=== PATIENT | male | born 1945 | race Caucasian/White ===

== ENCOUNTER → 2017-12-07 | Day surgery (SDC) | payer MEDICARE ==
[2017-12-04 12:33] LABS: BASOPHILS % 0.2 % (0.0-1.0); EOSINOPHILS # (AUTO) 0.1 (0.0-0.4); EOSINOPHILS % 1.3 % (0.0-6.0); HEMATOCRIT 44.2 % (38.2-49.6); HEMOGLOBIN 14.7 g/dL (14.0-18.0); LYMPHOCYTES # (AUTO) 3.5 (1.0-3.2); LYMPHOCYTES % 31.2 % (18.0-39.1); MEAN CORPUSCULAR HEMOGLOBIN 29.8 pg (28-32); MEAN CORPUSCULAR HGB CONC 33.3 g/dL (31-35); MEAN CORPUSCULAR VOLUME 89.5 fL (81-99); MONOCYTES # (AUTO) 1.1 (0.2-0.8); MONOCYTES % 10.2 % (4.4-11.3); NEUTROPHILS # (AUTO) 6.2 (2.1-6.9); NEUTROPHILS % 55.7 % (38.7-80.0); PLATELET COUNT 227 x10e3/uL (140-360); RED BLOOD COUNT 4.94 x10e6/uL (4.3-5.7); RED CELL DISTRIBUTION WIDTH 12.9 % (11.7-14.4)
[2017-12-04 12:52] LABS: ANION GAP 12.5 mmol/L (8-16); BLOOD UREA NITROGEN 14 mg/dL (7-26); BUN/CREATININE RATIO 13 (6-25); CALCIUM 9.8 mg/dL (8.4-10.2); CARBON DIOXIDE 27 mmol/L (22-29); CHLORIDE 102 mmol/L (98-107); CREATININE, SERUM 1.12 mg/dL (0.72-1.25); EST GLOMERULAR FILTRATION RATE > 60 ML/MIN (60-); GLUCOSE 87 mg/dL (74-118); POTASSIUM 4.5 mmol/L (3.5-5.1); SODIUM 137 mmol/L (136-145)
--- NOTE | 2017-12-04 13:05 | Diagnostic Imaging Report ---
CHEST RADIOGRAPH- 2 VIEWS, Comparison: None Indication: Pre-op DISCUSSION: Lines: None. Lungs/pleural spaces: The lungs are moderately inflated and clear. Calcified right upper lobe granuloma. No evidence of pneumonia or pulmonary edema. No evidence of pleural effusion or pneumothorax. Heart/mediastinum: Normal heart size. Tortuous descending thoracic aorta. Bones: Multilevel degenerative changes and mild approximately 50% anterior wedging deformity of a lower thoracic vertebral body and minimal anterior wedging of a midthoracic vertebral body, unchanged from prior. IMPRESSION: No acute radiographic abnormality. Signed by: Dr. Julienne Rosenthal MD on 12/04/2017 1:01 PM
[~2017-12-07] MED LIST: ALLERGY RELIEF PO; ALPRAZOLAM0.5 M1 PO; AZITHROMYCIN250 MG PO; BUPIVACAINE HCL 0.5% 10ML MPF VIAL INJ ONE; BUPROPION HCL100 MG PO; CEFAZOLIN SOD 2 GM/D5W 50ML 50 ML IV ONE; CYMBALTA30 MG PO; DEXAMETHASONE SOD PHOS INJ 4 MG/ML VIAL ONE; FENTANYL CITRATE/PF 100MCG/2 ML INJ ONE; HYDROCODONE-CH473 ML PO; KETOROLAC TROMETHAMINE 30 MG/ML VIAL ONE; LIDOCAINE HCL 2% LOCAL INJ 5 ML SDV VIAL INJ ONE; MIDAZOLAM HCL 2 MG/2 ML VIAL ONE; MULTIVITAMINS1 EAC7 PO; MUPIROCIN 2% OINT 22 GM TUBE ONE; NUVIGIL150 MG PO; OMEPRAZOLE40 MG PO; ONDANSETRON HCL INJ 2 MG/ML VIAL ONE; OXYCONTIN10 MG; PERCOCET 10-321 EACH PO; PRAVASTATIN SOD40 MG PO; PROPOFOL IV EMULSION 10 MG/ML 20 ML VIAL ONE; PROPRANOLOL HCL60 M1 PO; RANITIDINE HCL150 MG PO; ROBAXIN-750750 MG PO; SEVOFLURANE INHAL SOLN 250 ML PEN BTL ONE; TRAZODONE HCL50 MG PO; TYLENOL EXTRA500 MG PO; ZANTAC150 MG PO; ZOFRAN ODT4 MG PO
--- OUTSIDE RECORDS SUMMARY | 2017-12-07 06:19 | XMS REPORT ---
Author Author Shane Davis Organization [employer] Address Unknown Phone Unavailable Care Team Providers Care Elderly Caregiver Name Role Phone Shane Davis CP Unavailable Allergies, Adverse Reactions, Alerts Substance Reaction Event Type Morphine Sulfate nausea Drug Allergy Demerol rapid heart beat Drug Allergy Problems Problem Type Condition Code Onset Dates Condition Status Problem GERD K21.9 Active Assessment Edema of larynx J38.4 Active Problem Dysphagia R13.19 Active Assessment GERD K21.9 Active Assessment Laryngeal spasm J38.5 Active Assessment Cough R05 Active Assessment Dysphagia R13.19 Active Medications Medication Code System Code Instructions Start Date End Date Status Dosage Propranolol HCl [facility] [address]-56 Active not defined Zantac [facility] [address]-54 Active not defined Robaxin [facility] [address]-12 Active not defined Tylenol [facility] [address]-64 Active not defined Wellbutrin NDC 0 Active not defined Multivitamin [facility] 76286-87883 Active not defined Pravastatin Sodium [facility] [address]-13 Active not defined Duloxetine HCl [facility] [address]-62 Active not defined Omeprazole NDC 0 Active not defined Melatonin [facility] [address]80-[address]40 Active not defined Results No Known Results Summary Purpose [employer] Submission
--- OUTSIDE RECORDS SUMMARY | 2017-12-07 06:19 | XMS REPORT ---
Author Author Shane Davis Organization [employer] Address Unknown Phone Unavailable Care Team Providers Care Privacy Director Name Role Phone Shane Davis CP Unavailable Allergies, Adverse Reactions, Alerts Substance Reaction Event Type Morphine Sulfate nausea Drug Allergy Demerol rapid heart beat Drug Allergy Problems Problem Type Condition Code Onset Dates Condition Status Problem GERD K21.9 Active Assessment Cough R05 Active Problem Dysphagia R13.19 Active Assessment GERD K21.9 Active Assessment Dysphagia R13.19 Active Assessment Edema of larynx J38.4 Active Medications Medication Code System Code Instructions Start Date End Date Status Dosage Pravastatin Sodium [facility] [address]-66 Active not defined Multivitamin [facility] [address] Active not defined Robaxin [facility] [address]-26 Active not defined Omeprazole NDC 0 Active not defined Tylenol [facility] [address]-80 Active not defined Zantac [facility] [address]-71 Active not defined Wellbutrin NDC 0 Active not defined Propranolol HCl [facility] [address]-21 Active not defined Melatonin [facility] [address]763 Active not defined Tussionex Pennkinetic ER [facility] 55241037958 10-8 MG/5ML Orally every 12 hrs May 16, 2017 May 26, 2017 Active 5 ml as needed Oxycodone HCl [facility] [id number] 5 MG/5ML Orally every 6 hrs May 16, 2017 May 23, 2017 Active 10 ml as needed Duloxetine HCl [facility] [address]-89 Active not defined Diazepam [facility] 91693544815 10 MG Orally Twice a day May 16, 2017 Active 1 tablet as needed Results No Known Results Summary Purpose [employer] Submission
--- OUTSIDE RECORDS SUMMARY | 2017-12-07 06:19 | XMS REPORT ---
Author Author Shane Davis Organization [employer] Address Unknown Phone Unavailable Care Team Providers Care Pest Locator Name Role Phone Shane Davis CP Unavailable Allergies, Adverse Reactions, Alerts Substance Reaction Event Type Morphine Sulfate nausea Drug Allergy Demerol rapid heart beat Drug Allergy Problems Problem Type Condition Code Onset Dates Condition Status Problem GERD K21.9 Active Assessment Nasal airway obstruction J34.89 Active Problem Dysphagia R13.19 Active Assessment Edema of larynx J38.4 Active Assessment GERD K21.9 Active Assessment Cough R05 Active Assessment Dysphagia R13.19 Active Medications Medication Code System Code Instructions Start Date End Date Status Dosage Tylenol [facility] [address]-47 Active not defined Omeprazole NDC 0 Active not defined Pravastatin Sodium [facility] [address]-75 Active not defined Duloxetine HCl [facility] [address]-99 Active not defined Zantac [facility] [address]-12 Active not defined Multivitamin [facility] [address]-36609 Active not defined Propranolol HCl [facility] [address]-77 Active not defined Robaxin [facility] [address]-59 Active not defined Melatonin [facility] [address]56 Active not defined Wellbutrin ND 0 Active not defined Results No Known Results Summary Purpose [employer] Submission
--- OUTSIDE RECORDS SUMMARY | 2017-12-07 06:19 | XMS REPORT ---
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 Problem GERD K21.9 Active Assessment Edema of larynx J38.4 Active Problem Dysphagia R13.19 Active Assessment GERD K21.9 Active Assessment Laryngeal spasm J38.5 Active Assessment Cough R05 Active Assessment Dysphagia R13.19 Active Medications Medication Code System Code Instructions Start Date End Date Status Dosage Tylenol [facility] [address]-96 Active not defined Propranolol HCl [facility] [address]-67 Active not defined Symbicort [facility] 49270497439 160-4.5 MCG/ACT Inhalation Twice a day June 04, 2017 July 04, 2017 Active 2 puffs Multivitamin [facility] 8[address]-17849 Active not defined Omeprazole NDC 0 Active not defined Robaxin [facility] [address]-22 Active not defined Duloxetine HCl [facility] [address]-19 Active not defined Medrol (Jesus) [facility] 41672110741 4 MG Orally June 04, 2017 June 10, 2017 Active as directed Wellbutrin NDC 0 Active not defined Melatonin [facility] [address]78-17512 Active not defined Zantac [facility] [address]-47 Active not defined Pravastatin Sodium [facility] [address]-99 Active not defined Results No Known Results Summary Purpose [employer] Submission
--- OUTSIDE RECORDS SUMMARY | 2017-12-07 06:19 | XMS REPORT | Clinical Summary ---
Author Author [facility] Organization [facility] Address Unknown Phone Unavailable Care Team Providers Care Lighting Technician Name Role Phone Stefanie Wilhelm MD PCP Allergies Active Allergy Reactions Severity Noted Date Comments Meperidine Other (See Comments) High 10/08/2014 Heart beat fast tachycardia tachycardia tachycardia Morphine Nausea And Vomiting High 10/08/2014 Opioids - Morphine Nausea And Vomiting 02/23/2016 Analogues Current Medications Prescription Sig. Disp. Refills Start End Date Status Date DULoxetine (CYMBALTA) 30 Take 30 mg by mouth. Active MG capsule multivitamin capsule Take 1 capsule by mouth. Active omeprazole (PriLOSEC) 40 Take 40 mg by mouth. Active MG capsule omeprazole (PriLOSEC) 20 Take 20 mg by mouth. Active MG capsule pravastatin (PRAVACHOL) Take 40 mg by mouth. Active 40 MG tablet mirabegron (MYRBETRIQ) 25 Myrbetriq 25 mg Active mg tablet extended tablet,extended release release 24 hr acetaminophen-codeine acetaminophen 300 Active (TYLENOL WITH CODEINE #4) mg-codeine 60 mg tablet 300-60 mg per tablet benzonatate (TESSALON) Take 200 mg by mouth. 09/06/19 Active 200 MG capsule 16 predniSONE (DELTASONE) 20 1 tab qd-bid for up to 5 09/14/19 Active mg tablet days 16 acetylcysteine (MUCOMYST) INHALE 1 ML TWICE A DAY Active 200 mg/mL (20 %) solution amoxicillin (AMOXIL) 500 amoxicillin 500 mg Active MG capsule capsule budesonide (PULMICORT) INHALE 1 VIAL TWICE A DAY Active 0.25 mg/2 mL nebulizer solution cephalexin (KEFLEX) 500 cephalexin 500 mg capsule Active MG capsule hydrocortisone Proctosol HC 2.5 % rectal Active (ANUSOL-HC) 2.5 % rectal cream cream keTOROlac (TORadol) 10 mg ketorolac 10 mg tablet Active tablet methylPREDNISolone methylprednisolone 4 mg Active (MEDROL DOSEPAK) 4 mg tablets in a dose pack tablet pregabalin (LYRICA) 50 MG Lyrica 50 mg capsule Active capsule terbinafine HCl (LamiSIL) terbinafine HCl 250 mg Active 250 mg tablet tablet ranitidine (ZANTAC) 150 03/15/19 Active MG tablet 17 cyclobenzaprine Take 10 mg by mouth. Active (FLEXERIL) 10 mg tablet famotidine (PEPCID) 40 MG Take 40 mg by mouth. Active tablet promethazine (PHENERGAN) Take 25 mg by mouth. Active 25 MG tablet omeprazole (PriLOSEC) 40 Take 40 mg by mouth. Active MG capsule acetaminophen (TYLENOL) Take 500 mg by mouth. Active 500 MG tablet ondansetron (ZOFRAN) 4 MG as needed. 01/28/20 Active tablet 16 Active Problems Problem Noted Date Lumbar degenerative disc disease 04/06/2016 Arthritis 04/03/2016 Enlarged prostate 04/03/2016 Lumbar spinal stenosis 03/30/2016 Depression 03/22/2016 Mild cognitive disorder 03/22/2016 Actinic keratosis 10/13/2015 Benign lipomatous neoplasm 10/13/2015 History of basal cell carcinoma 10/13/2015 Hypertension 10/16/2014 Hypokalemia 10/16/2014 Leukocytosis 10/16/2014 Disorder of orbit 10/16/2014 Slurred speech 10/16/2014 Temporary cerebral vascular dysfunction 10/16/2014 Fever 10/15/2014 Shortness of breath 10/15/2014 Complete tear of left rotator cuff 10/13/2014 Family History Medical History Relation Name Comments Arthritis Father Cancer Father Arthritis Mother Cancer Paternal Grandfather Relation Name Status Comments Father Mother Paternal Grandfather Social History Tobacco Use Types Packs/Day Years Used Date Never Smoker Alcohol Use Drinks/Week oz/Week Comments Yes "alcoholic until 1993' Sex Assigned at Date Recorded Not on file Last Filed Vital Signs Not on file Plan of Treatment Health Maintenance Due Date Last Done Comments COLON CANCER SCREENING 1996 SHINGRIX VACCINE (#1) 1996 ZOSTER VACCINE 2006 PNEUMOCOCCAL 09/07/2011 POLYSACCHARIDE VACCINE AGE 65 AND OVER PNEUMOCOCCAL-13 09/07/2011 INFLUENZA VACCINE 09/12/2017 Results Not on fileafter 12/06/2016 Insurance Payer Benefit Subscriber ID Type Phone Address Plan / Group MEDICARE MEDICARE xxxxxxxxxx Medicare [place] PART A [place] B AARP AARP xxxxxxxxx-xx Commercial SUPPLEMENT Home:
--- OUTSIDE RECORDS SUMMARY | 2017-12-07 06:19 | XMS REPORT ---
Author Author Shane Davis Organization [employer] Address Unknown Phone Unavailable Care Team Providers Care Business Services Representative Name Role Phone Shane Davis CP Unavailable Allergies, Adverse Reactions, Alerts Substance Reaction Event Type Morphine Sulfate nausea Drug Allergy Demerol rapid heart beat Drug Allergy Problems Problem Type Condition Code Onset Dates Condition Status Problem GERD K21.9 Active Assessment Cough R05 Active Problem Dysphagia R13.19 Active Assessment Dysphagia R13.19 Active Assessment GERD K21.9 Active Medications Medication Code System Code Instructions Start Date End Date Status Dosage Wellbutrin NDC 0 Active not defined Tylenol [facility] [address]-13 Active not defined Duloxetine HCl [facility] [address]-55 Active not defined Robaxin [facility] [address]-18 Active not defined Pravastatin Sodium [facility] [address]-24 Active not defined Zantac [facility] [address]-24 Active not defined Melatonin [facility] [address]-14557 Active not defined Propranolol HCl [facility] [address]-55 Active not defined Diazepam [facility] 74315874975 10 MG Orally Twice a day May 16, 2017 Active 1 tablet as needed Multivitamin [facility] [address]90[address]-90778 Active not defined Omeprazole ND 0 Active not defined Results No Known Results Summary Purpose [employer]ClinicalWorks Submission
--- OUTSIDE RECORDS SUMMARY | 2017-12-07 06:19 | XMS REPORT ---
Author Author Shane Davis Organization [employer] Address Unknown Phone Unavailable Care Team Providers Care Tear Down Man Name Role Phone Shane Davis CP Unavailable Allergies, Adverse Reactions, Alerts Substance Reaction Event Type Morphine Sulfate nausea Drug Allergy Demerol rapid heart beat Drug Allergy Problems Problem Type Condition Code Onset Dates Condition Status Problem GERD K21.9 Active Assessment Edema of larynx J38.4 Active Problem Dysphagia R13.19 Active Assessment Cough R05 Active Assessment Dysphagia R13.19 Active Medications Medication Code System Code Instructions Start Date End Date Status Dosage Wellbutrin NDC 0 Active not defined Zantac [facility] [address]-99 Active not defined Duloxetine HCl [facility] [address]-41 Active not defined Clonazepam [facility] [address]-54 Active not defined Robaxin [facility] [address]-53 Active not defined Tylenol [facility] [address]-90 Active not defined Melatonin [facility] 17564-[address]37 Active not defined Percocet [facility] [address]-64 Active not defined Pravastatin Sodium [facility] [address]-52 Active not defined Movantik [facility] [address]-47 Active not defined Flexeril NDC 0 Active not defined Propranolol HCl [facility] [address]-66 Active not defined Multivitamin [facility] [address]352 Active not defined Omeprazole NDC 0 Active not defined DHEA [facility] [address]59[address]-93801 Active not defined Results No Known Results Summary Purpose [employer]ClinicalWorks Submission
--- OUTSIDE RECORDS SUMMARY | 2017-12-07 06:19 | XMS REPORT | Summary of Care ---
Author Author [facility] [place] Organization [facility] [place] Address Unknown Phone Unavailable Encounter HQ Donya_shantel(FIN) [id number] Date(s): 06/09/15 - 06/09/15 [facility] [place] [address] [place], [place] [address] [phone] Discharge Disposition: Home Attending Physician: Makenna Treviño NP Vital Signs No data available for this section Problem List Condition Effective Dates Status Health Status Informant Collapsed lung Resolved 10/2014(Confirmed) GERD Resolved (gastroesophageal reflux disease)(Confirmed) Allergies, Adverse Reactions, Alerts Substance Reaction Severity Status NKDA Active Medications No data available for this section Results No data available for this section Immunizations No data available for this section Procedures Procedure Date Related Diagnosis Body Site Abdomen endoscopy 2015 FH: total knee replacement-Right 19 years ago History of repair of rotator cuff 10/27 Social History Social History Type Response Smoking Status Never smoker; Exposure to Tobacco Smoke None; Cigarette Smoking Last 365 Days No; Reg Smoking Cessation Counseling No Assessment and Plan No data available for this section
--- OUTSIDE RECORDS SUMMARY | 2017-12-07 06:19 | XMS REPORT ---
[facility] Address Unknown Phone Unavailable Care Team Providers Care Commercial Credit Specialist Name Role Phone ASIA BARRERA Unavailable Unavailable FAN, Koki SWARTZ Unavailable Unavailable Problems This patient has no known problems. Allergies, Adverse Reactions, Alerts This patient has no known allergies or adverse reactions. Medications This patient has no known medications. Results Test Description Test Time Test Comments Text Results Atomic Results Result Comments CHEST 2 VIEWS 2017-12-04 12:58:00 [facility] [address] [address] Patient Name: CYNDI WALLS MR #: [id number] : 1945 Age/Sex: 72/M Req #: [id number] Adm Physician: Ordered by: ASIA BARRERA DPM Report #: [id number] Location: OR Room/Bed: Procedure: [id number] DX/CHEST 2 VIEWS Exam Date: 12/04/17 Exam Time: 1205 REPORT STATUS: Signed CHEST RADIOGRAPH- 2 VIEWS, Comparison: None Indica tion: Pre-op DISCUSSION: Lines: None. Lungs/pleural spaces: The lungs are moderately inflated and clear. Calcified right upper lobe granuloma. No evidence of pneumonia or pulmonary edema. No evidence of pleural effusion or pneumothorax. Heart/mediastinum: Normal heart size. Tortuous descending thoracic aorta. Bones: Multilevel degenerative changes and mild approximately 50% anterior wedging deformity of a lower thoracic vertebral body and minimal anterior wedging of a midthoracic vertebral body, unchanged from prior. IMPRESSION: No acute radiographic abnormality. Signed by: Dr. Merna Pacheco MD on 12/04/2017 1:01 PM Dictated By: MERNA PACHECO MD 00 Transcribed By: PARUL on 12/04/17 130 COPY TO: ASIA BARRERA DPM FL, ESOPH, SWALLOW FUNCTION, WITH CINE OR VIDEO 2017-07-19 16:13:00 Reason for Exam:->CoughReason for Exam:->DysphagiaReason for Exam:->GERD FINAL REPORT Modified barium swallow exam with speech pathology service CLINICAL HISTORY: CoughDysphagiaGERD IMPRESSION: Please see the speech pathology service report for details. Barium contrast of multiple consistencies is given to the patient to swallow. Fluoroscopic observation is performed during swallowing. No aspiration identified. Barium esophagogram Clinical History: CoughDysphagiaGERD Discussion: Effervescent crystals, thick barium, and thin barium are given to the patient to drink, without difficulties. The esophageal mucosa, caliber, and gastroesophageal junction are normal. There is mild presbyesophagus. Moderate gastroesophageal reflux is noted. Fluoro time: 4.4 minutes Number of images obtained: 25 Impression: Moderate gastroesophageal reflux. Mild presbyesophagus. Signed: Akosua Dc Verified Date/Time: 07/19/2017 16:13:25 Reading Location: [address] Ortho Consult Reading Room T 2 VIEWS [place] [address] Patient Name: CYNDI WALLS MR #: [id number] : 1945 Age/Sex: 71/M Req #: [id number] Adm Physician: Ordered by: MAXIME CHAVIRA MD Report #: [id number] Location: ER Room/Bed: Procedure: [id number] DX/CHEST 2 VIEWS Exam Date: 12/27/16 Exam Time: 0015 REPORT STATUS: Signed CHEST 2 VIEWS, Technique: CHEST 2 VIEWS Comparison: None Clinical history: Cough DISCUSSION: Heart/mediastinum: Normal heart size. Tortuous descending thoracic aorta. Lungs/pleural spaces: Calcified right upper lobe granuloma. No consolidation, pleural effusion or pneumothorax. Bones: Multilevel degenerative changes and mild approximately 50% anterior wedging deformity of a lower thoracic vertebral body and minimal anterior wedging of a midthoracic vertebral body. IMPRESSION: No acute abnormality. Signed by: Dr Stu Jovel MD on 12/27/2016 12:33 AM Dictated By: STU JOVEL MD Transcribed By: PARUL on 12/27/1632 COPY TO: MAXIME CHAVIRA MD
--- OUTSIDE RECORDS SUMMARY | 2017-12-07 06:19 | XMS REPORT | Summary of Care ---
Author Author [facility] [place] Organization [facility] [place] Address Unknown Phone Unavailable Encounter HQ Donya_shantel(FIN) [id number] Date(s): 01/11/17 - 01/11/17 [facility] [place] [address] [place] [address] [phone] Discharge Disposition: Home or Self Care Attending Physician: Orlando Moscoso MD Vital Signs No data available for this [...]
--- OUTSIDE RECORDS SUMMARY | 2017-12-07 06:19 | XMS REPORT | Clinical Summary ---
Author Author NATASHA [facility] Address Unknown Phone Unavailable Care Team Providers Care Pipe Fitter Soft Copper Name Role Phone PCP Unavailable Allergies Active Allergy Reactions Severity Noted Date Comments Meperidine Other (See Comments) High 10/08/2014 tachycardia Morphine Nausea And Vomiting High 10/08/2014 Current Medications Prescription Sig. Disp. Refills Start End Date Status Date multivitamin capsule Take 1 capsule by mouth Active daily. buPROPion (WELLBUTRIN SR) Take 200 mg by mouth Active 200 MG 12 hr tablet daily . omeprazole (PRILOSEC) 40 Take 40 mg by mouth 2 Active MG capsule (two) times daily . DULoxetine (CYMBALTA) 30 Take 60 mg by mouth daily Active MG capsule . ranitidine (ZANTAC) 150 Take 150 mg by mouth 2 Active MG tablet (two) times daily. acetaminophen (TYLENOL) Take 500 mg by mouth Active 500 MG tablet every 6 (six) hours as needed for Pain. pravastatin (PRAVACHOL) Take 40 mg by mouth Active 40 MG tablet nightly. oxyCODONE-acetaminophen Take 1 tablet by mouth Active (PERCOCET) 10-325 mg per every 4 (four) hours as tablet needed for Pain. melatonin 3 mg Tab tablet Take by mouth nightly. Active propranolol (INDERAL) 10 Take 10 mg by mouth 2 Active MG tablet (two) times daily. methocarbamol (ROBAXIN) Take 750 mg by mouth Active 750 MG tablet every 12 (twelve) hours. traZODone (DESYREL) 100 Take 100 mg by mouth Active MG tablet nightly. ALPRAZolam (XANAX) 0.5 MG Take 0.5 mg by mouth Active tablet every night as needed for Anxiety. clonazePAM (KLONOPIN) 1 Take 0.5 mg by mouth 05/28/ Discontin MG tablet Every 3rd day. 18 ued cyclobenzaprine Take 10 mg by mouth 3 05/29/19 Discontin (FLEXERIL) 10 MG tablet (three) times daily as 18 ued needed for Muscle spasms. Missing or Non-Formulary 1 tablet daily EHT-for 05/29/19 Discontin Medication memory . 18 ued predniSONE (DELTASONE) 10 Take 10 mg by mouth 05/29/19 Discontin MG tablet daily. 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 TIA (transient ischemic attack) 10/16/2014 Leucocytosis 10/16/2014 Hypokalemia 10/16/2014 Shortness of breath 10/15/2014 Fever 10/15/2014 Complete rupture of rotator cuff 10/13/2014 Arthritis Prostate enlargement Encounters Date Type Specialty Care Team Description 11/21/2017 [facility] Gastroenterology Rafa Eldridge MD Encounter 11/21/2017 Procedure Pass Gastroenterology 11/21/2017 Surgery Gastroenterology Rafa Eldridge MD REMOVAL,24HR PH PROBE 11/20/2017 [facility] Gastroenterology Rafa Eldridge MD Encounter 11/20/2017 Procedure Pass Gastroenterology 11/20/2017 Surgery Gastroenterology Rafa Eldridge MD TEST,MONITORING 24 HR PH 07/19/2017 Hospital Radiology Shane Davis MD Cough;Other Encounter dysphagia;Gastroesophagea l reflux disease, esophagitis presence not specified 07/19/2017 Hospital Radiology Shane Davis MD Cough;Other Encounter dysphagia;Gastroesophagea l reflux disease, esophagitis presence not specified 07/17/2017 Outside Orders Central Scheduling Shane Davis MD Cough (Primary Dx);Other dysphagia;Gastroesophagea l reflux disease, esophagitis presence not specified 05/31/2017 Hospital Shane Davis MD Encounter 05/31/2017 Procedure Pass 05/31/2017 Surgery Shane Davis MD LARYNGOSCOPY,MICROSUSPENS ION INJECTION VOCAL CORDS 05/30/2017 Anesthesia Mamadou Silverman MD Event 05/28/2017 Hospital Pre-Admission Testing Shane Davis MD Encounter after 12/06/2016 Social History Tobacco Use Types Packs/Day Years Used Date Never Smoker Smokeless Tobacco: Never Used Alcohol Use Drinks/Week oz/Week Comments No quit 1994 Sex Assigned at Date Recorded Not on file Last Filed Vital Signs Vital Sign Reading Time Taken Blood Pressure 133/70 11/20/2017 12:39 PM CDT Pulse 51 11/20/2017 12:39 PM CDT Temperature 36.7 C (98 F) 11/20/2017 12:39 PM CDT Respiratory Rate 18 11/20/2017 12:39 PM CDT Oxygen Saturation 97% 11/20/2017 12:39 PM CDT Inhaled Oxygen - - Concentration Weight 86.2 kg (190 lb) 11/20/2017 12:39 PM CDT Height 172.7 cm (5' 8") 11/20/2017 12:39 PM CDT Body Mass Index 28.89 11/20/2017 12:39 PM CDT Plan of Treatment Not on file Implants Implanted Type Area Retail Service Specialist Device Expiration Model / Identifier Date Serial / Lot Ocean Gate,He[employer] Advance Br 3 Suture Ocean Gate/Art Left: DEPUY MITEK 03/13/2017 [id number] / W/Ocord 4.5mm - [id number] hroscopy Shoulder / Implanted: Qty: 2 on 10/13/2014 by [id number] Gold Madison MD Ocean Gate,Healix Advance Br 3 Suture Ocean Gate/Art Left: DEPUY MITEK 03/13/2017 [id number] / W/Ocord 4.5mm - [id number] hroscopy Shoulder / Implanted: Qty: 1 on 10/13/2014 by [id number] Gold Madison MD Tiss Live [employer]optch Hd Uthk 5x5 - Tissue Left: MUSCULOSKELETAL 05/29/2017 [id number] / [id number] Graft/Subs Shoulder TRANSPLANT [id number] Implanted: Qty: 1 on 10/13/2014 by [id number] / Gold Madison MD Explanted: Procedures Procedure Name Priority Date/Time Associated Diagnosis Comments MOTILITY 11/20/2017 Gastroesophageal reflux 12:00 PM CDT disease, esophagitis presence not specified TEST,MONITORING 24 HR PH 11/20/2017 Gastroesophageal reflux 12:00 PM CDT disease, esophagitis presence not specified LARYNGOSCOPY,MICROSUSPENS 05/31/2017 Cough ION INJECTION VOCAL CORDS 7:30 AM CDT after 12/06/2016 Results * FL esoph swallow funct with cine video (07/19/2017 9:29 AM) Specimen Performing Laboratory GE RIS Narrative FINAL REPORT Modified barium swallow exam with speech pathology service CLINICAL HISTORY: Cough Dysphagia GERD IMPRESSION: Please see the speech pathology service report for details. Barium contrast of multiple consistencies is given to the patient to swallow. Fluoroscopic observation is performed during swallowing. No aspiration identified. Barium esophagogram Clinical History: Cough Dysphagia GERD Discussion: Effervescent crystals, thick barium, and thin barium are given to the patient to drink, without difficulties. The esophageal mucosa, caliber, and gastroesophageal junction are normal.There is mild presbyesophagus. Moderate gastroesophageal reflux is noted. Fluoro time:4.4 minutes Number of images obtained: 25 Impression: Moderate gastroesophageal reflux. Mild presbyesophagus. Signed: Akosua Dc MD Report Verified Date/Time:07/19/2017 16:13:25 Reading Location: [address] Consult Reading Room Procedure Note Interface, External Ris In - 07/19/2017 4:15 PM CDT FINAL REPORT Modified barium swallow exam with speech pathology service CLINICAL HISTORY: Cough Dysphagia GERD IMPRESSION: Please see the speech pathology service report for details. Barium contrast of multiple consistencies is given to the patient to swallow. Fluoroscopic observation is performed during swallowing. No aspiration identified. Barium esophagogram Clinical History: Cough Dysphagia GERD Discussion: Effervescent crystals, thick barium, and thin barium are given to the patient to drink, without difficulties. The esophageal mucosa, caliber, and gastroesophageal junction are normal. There is mild presbyesophagus. Moderate gastroesophageal reflux is noted. Fluoro time: 4.4 minutes Number of images obtained: 25 Impression: Moderate gastroesophageal reflux. Mild presbyesophagus. Signed: Akosua Dc MD Report Verified Date/Time: 07/19/2017 16:13:25 Reading Location: [facility] [address] [place] [address] Consult Reading Room after 12/06/2016
--- OUTSIDE RECORDS SUMMARY | 2017-12-07 06:19 | XMS REPORT | Continuity of Care Document ---
Author Author Mansi grantann Organization Interface Address Unknown Phone Unavailable Problems Problem Status Onset Date Classification Date Reported Comments Source M54.5 - LOW BACK PAIN Active 06/08/2015 [facility] [place], [facility] [place] Collapsed lung 10/2014 Resolved Problem 01/14/2017 [facility] [place], [facility] [place] GERD (<span ID="[id number]">Confirmed</span>) Resolved Problem 01/14/2017 [facility] [place], [facility] [place] Medications Medication Details Route Status Patient Instructions Ordering Provider Order Date Source Allergies, Adverse Reactions, Alerts Substance Category Reaction Severity Reaction type Status Date Reported Comments Source Immunizations Immunization Date Given Site Status Last Updated Comments Source Results Order Name Results Value Reference Range Date Interpretation Comments Source Abdomen/Pelvis w/wo IV contrast CT Abdomen/Pelvis w/wo IV contrast CT EXAM: CT ABDOMEN AND PELVIS WITH AND WITHOUT CONTRAST DATE: 01/11/2017 1:23 PM DIRECTOR TELEMETRY INDICATION: - K59.00 Constipation, unspecified; K62.5 Hemorrhage of anus and rectum; K64.9 Unspecified hemorrhoids; R10.30 Lower abdominal pain, unspecified ADDITIONAL INFORMATION: None. COMPARISON: Abdomen CT dated TECHNIQUE: Volumetric CT acquisition of the abdomen and pelvis before and after the intravenous administration contrast. Axial, coronal and sagittal reconstructions. Postcontrast phases: Venous and delayed IV contrast: 100 mL Omnipaque Oral contrast: Omni mix CT Radiation Dose DLP 2158 mGy-cm AEC, mA/kV adjustment by patient size, and/or iterative reconstruction technique were used, per departmental dose-optimization program. FINDINGS: Lines and tubes: Penile pump Lower thorax: Unremarkable. Liver and biliary tree: Multiple hypodense lesions are again seen throughout the liver, most of which have increased in size. On postcontrast images, most lesions do not enhance, which is compatible with cysts. Others demonstrate enhancement patterns compatible with hemangiomas. The largest cyst measures up to 4.2 cm Gallbladder: Surgically absent Pancreas: Normal. Spleen: Normal. Adrenals: There is a 1 cm left adrenal adenoma. The right adrenal gland is unremarkable. Kidneys and ureters: Normal. No hydronephrosis. Bladder: Normal. Reproductive organs: The central gland of the prostate has a markedly irregular contour, which may be due to prior interventions. Gastrointestinal tract: There is hyperenhancement of the rectal mucosa. There is mild diverticulosis. 2 sites of proximal jejunal intussusception are noted and are likely transient. There is no evidence of obstruction Appendix: Normal Peritoneum and retroperitoneum: No ascites or free air. Lymph nodes: No pathologic adenopathy. Vasculature: There is moderate calcified and noncalcified plaque throughout the aorta and iliac arteries Bones: No acute abnormality. There are severe multilevel spinal degenerative changes. Soft tissues: Unremarkable. IMPRESSION: 1. Multiple hepatic cysts and few hepatic hemangiomas. 2. Small left adrenal adenoma. 3. Cholecystectomy. 4. Hyperenhancement of the rectal mucosa which may be due to hemorrhoids. 5. Diverticulosis. 6. Irregularity of the central gland prostate. Correlate clinically. 01/11/2017 - - Read by: Cheryl Alex Dictated Date/time: 01/11/17 15:58 Electronically Signed by: Cheryl Alex 01/11/17 16:19 FINAL REPORT DIVYA Millard Spine lumbar flex/ext 2 view DX Spine lumbar flex/ext 2 view DX CLINICAL HISTORY: low back pain AGE: 69 years GENDER: Male TECHNIQUE: Lumbar spine radiographs, 2 views including lateral flexion and extension images. COMPARISON: 05/19/2015 FINDINGS: L5 is defined as the lowest lumbar type vertebral body on the lateral image. There is moderate to severe multilevel degenerative disc disease, worst at L1-L2 and L2-L3. There is associated sclerosis of the endplates at L1-L2. Again noted is mild grade 1 retrolisthesis of L1 on L2 and L2 on L3. This is not changed significantly with flexion or extension images. IMPRESSION: Moderate multilevel degenerative disc disease with mild grade 1 retrolisthesis of L1 on L2 and L2-L3. No evidence of instability. 06/09/2015 - - Read by: Sd Schulz MD Dictated Date/time: 06/09/15 10:08 Electronically Signed by: Sd Schulz MD 06/09/15 10:17 FINAL REPORT [facility] [place] Spine lumbar 2 or 3 views DX Spine lumbar 2 or 3 views DX EXAM: XR LUMBAR SPINE 3 VIEWS DATE: 05/19/2015 11:35 AM CDT INDICATION: low back pain COMPARISON: Lumbar spine series 05/22/2007 TECHNIQUE: AP, lateral, and cone lateral views of the lumbar spine DISCUSSION: 5 nonrib bearing, lumbar-type vertebral bodies are present. Mild levoconvex scoliosis of the lumbar spine. There is minimal retrolisthesis at L2- L3 and L3-L4. Vertebral body heights are maintained. Disc space narrowing throughout the lumbar spine, greatest along the inner curvature of the scoliosis at L1-L3. There is endplate sclerosis at L1-L2. Large anterior vertebral body osteophytes of the lumbar spine, greatest at the superior levels. Severe facet arthropathy of the lower lumbar spine. Laminectomies at L4-L5 are unchanged. Pelvic surgical clips are present. IMPRESSION: Slight interval progression of severe degenerative disc disease and facet arthropathy of the lumbar spine since 05/22/2007. 05/19/2015 - - Read by: Pieter Helton MD Dictated Date/time: 05/19/15 13:31 Electronically Signed by: Pieter Helton MD 05/19/15 13:33 FINAL REPORT ION Grantann Vital Signs Vital Sign Value Date Comments Source Encounters Location Location Details Encounter Type Encounter Number Reason For Visit Attending Provider ADM Date DC Date Status Source Outpatient [id number] RASHID SILVERMAN 05/19/2015 Active [facility]patient [facility] [place] [facility] [id number] Rashid Silverman 05/19/2015 05/20/2015 [facility] - [place] [facility] [id number] Makenna Buys 06/09/2015 06/10/2015 [facility] [place] Outpatient [id number] JONH MORALES 06/15/2015 Active [facility] Outpatient [id number] JONH MORALES 06/15/2015 Active [facility] Outpatient [id number] MAKENNA BUYS 07/12/2015 [facility] - [place] [facility] [id number] Harshinie Amaratunge 01/11/2017 01/12/2017 [facility] [place] Procedures Procedure Code Date Perfomer Comments Source Abdomen endoscopy 2015 [id number] ION Millard FH: total knee replacement-Right 19 years ago [id number] ION Millard History of repair of rotator cuff 10/27 [id number] ION Millard Abdomen endoscopy 2016 [id number] ION Ad[facility] FH: total knee replacement-Right 19 years ago [id number] ION Aden History of repair of rotator cuff 10/27 [id number] ION Aden
--- OUTSIDE RECORDS SUMMARY | 2017-12-07 06:19 | XMS REPORT | Summary of Care ---
Author Author [facility] [place] Organization [facility] Address Unknown Phone Unavailable Encounter HQ Donya_shantel(FIN) [id number] Date(s): 05/19/15 - 05/19/15 [facility] [place] [address] [place] [phone] Discharge Disposition: Home Attending Physician: Rashid Silverman MD Vital Signs No data available for [...]
--- OUTSIDE RECORDS SUMMARY | 2017-12-07 06:19 | XMS REPORT ---
Author Author Shane Davis Organization [employer] Address Unknown Phone Unavailable Care Team Providers Care Grain And Yeast Plants Supervisor Name Role Phone Shane Davis CP Unavailable Allergies No Known Allergies Problems Problem Type Condition Code Onset Dates Condition Status Problem GERD K21.9 Active Problem Dysphagia R13.19 Active Medications No Known Medications Results No Known Results Summary Purpose [employer] Submission
--- OUTSIDE RECORDS SUMMARY | 2017-12-07 06:19 | XMS REPORT ---
Author Author Shane Davis Organization [employer] Address Unknown Phone Unavailable Care Team Providers Care Can Maker Name Role Phone Shane Davis CP Unavailable Allergies No Known Allergies Problems Problem Type Condition Code Onset Dates Condition Status Problem GERD K21.9 Active Problem Dysphagia R13.19 Active Medications Medication Code System Code Instructions Start Date End Date Status Dosage Symbicort [facility][NOTE 3] 99078149287 160-4.5 MCG/ACT Inhalation Twice a day June 04, 2017 July 04, 2017 Active 2 puffs Medrol (Jesus) [facility][NOTE 3] [id number] 4 MG Orally June 04, 2017 June 10, 2017 Active as directed Results No Known Results Summary Purpose [employer] Submission
--- OUTSIDE RECORDS SUMMARY | 2017-12-07 06:19 | XMS REPORT ---
Author Author Shane Davis Organization [employer] Address Unknown Phone Unavailable Care Team Providers Care Truck Supervisor Name Role Phone Shane Davis CP Unavailable Allergies No Known Allergies Problems Problem Type Condition Code Onset Dates Condition Status Problem GERD K21.9 Active Problem Dysphagia R13.19 Active Medications No Known Medications Results No Known Results Summary Purpose [employer] Submission
[2017-12-07 10:40] VITALS: BP 138/86
--- NOTE | 2017-12-14 14:56 | Operative Report ---
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 TITLE OF OPERATION: Arthroplasty, 2nd digit, distal interphalangeal joint, right foot, with excision of bone spur, 2nd digit, right foot. ANESTHESIA: General endotracheal. HEMOSTASIS: A right ankle tourniquet at 250 mmHg. PROCEDURE IN DETAIL: The patient was taken to the operating room in a mildly sedated state and placed upon the operating table in the supine position. Following induction of general anesthetic, the right lower extremity was elevated to 60 degrees to exsanguinate before inflating the pneumatic ankle tourniquet to 250 mmHg to create hemostasis. The right lower extremity was placed upon the operating table prior to performing the following procedure: Procedure #1: Arthroplasty, 2nd digit, right foot, with excision of a bone spur. An approximate 2-cm linear longitudinal incision was made across the distal interphalangeal joint level of the right 2nd digit. The incision was deepened via sharp and blunt dissection down to the level of the dorsal capsular structure. Care was taken to identify and retract all vital structures encountered. The head of the intermediate phalanx was delivered in the surgical site and remodeled utilizing an oscillating saw. Adjacent spurring on the bone was remodeled with a side-cutting bur as well. The area was then irrigated with copious amounts of sterile saline solution, and all bone matter was expressed therein. The deep closure was 3-0 Vicryl and skin closure 4-0 nylon. The appropriate mildly compressive dressings were applied. Release of the pneumatic ankle tourniquet showed a normal hyperemic flush to all digits of the right foot. The patient left the operating room with vital signs stable and in apparent satisfactory condition, having tolerated both anesthetic and procedure very well. Job#: [id number]
== END | disposition home or self-care (01) ==
LOC: OR 06:16
PROVIDERS: ATTEND Podiatrist Foot Surgery
DX: M20.41 Other hammer toe(s) (acquired), right foot (principal); M25.774 Osteophyte, right foot; G47.33 Obstructive sleep apnea (adult) (pediatric); I49.9 Cardiac arrhythmia, unspecified; Z88.6 Allergy status to analgesic agent; Z01.810 Encounter for preprocedural cardiovascular examination; Z01.812 Encounter for preprocedural laboratory examination; Z01.818 Encounter for other preprocedural examination
CPT/HCPCS: 28108; 28285; 36415; 71046; 80048; 85025; 93005; J0690; J1100; J1885; J2001; J2250; J2405; J2704; 76001

== ENCOUNTER → 2021-03-24 | Day surgery (SDC) | payer MEDICARE ==
[2021-03-22 10:22] LABS: BASOPHILS % 0.3 % (0.0-1.0); EOSINOPHILS # (AUTO) 0.2 (0.0-0.4); EOSINOPHILS % 1.2 % (0.0-6.0); HEMATOCRIT 41.2 % (38.2-49.6); HEMOGLOBIN 13.4 g/dL (14.0-18.0); LYMPHOCYTES # (AUTO) 3.7 (1.0-3.2); LYMPHOCYTES % 29.7 % (18.0-39.1); MEAN CORPUSCULAR HEMOGLOBIN 29.6 pg (28-32); MEAN CORPUSCULAR HGB CONC 32.5 g/dL (31-35); MEAN CORPUSCULAR VOLUME 91.2 fL (81-99); MONOCYTES # (AUTO) 1.1 (0.2-0.8); MONOCYTES % 8.5 % (4.4-11.3); NEUTROPHILS # (AUTO) 7.3 (2.1-6.9); NEUTROPHILS % 59.1 % (38.7-80.0); PLATELET COUNT 192 x10e3/uL (140-360); RED BLOOD COUNT 4.52 x10e6/uL (4.3-5.7); RED CELL DISTRIBUTION WIDTH 12.7 % (11.7-14.4)
[~2021-03-24] MED LIST changes: +AMLODIPINE BESYL5 MG PO; +ARICEPT5 MG PO; +BUPIVACAINE 0.25% 30ML SDV ONE; -BUPIVACAINE HCL 0.5% 10ML MPF VIAL INJ ONE; -CEFAZOLIN SOD 2 GM/D5W 50ML 50 ML IV ONE; +CELEBREX100 MG PO; -DEXAMETHASONE SOD PHOS INJ 4 MG/ML VIAL ONE; +IOPAMIDOL 200 MG/ML 20 ML VIAL IT ONE; +ISOSORBIDE MONO30 MG PO; -KETOROLAC TROMETHAMINE 30 MG/ML VIAL ONE; +LIDOCAINE HCL 1% 30ML-PF VIAL ONE; +LIPITOR10 MG PO; +MELATONIN3 MG PO; -MUPIROCIN 2% OINT 22 GM TUBE ONE; -ONDANSETRON HCL INJ 2 MG/ML VIAL ONE; +PLAVIX75 MG PO; +POVIDONE IODINE 0.05% 0.05 % ML PO ONE; -SEVOFLURANE INHAL SOLN 250 ML PEN BTL ONE; +TRIAMCINOLONE ACET 40 MG/ML VIAL ONE; +TYLENOL #3 PO; +VICODIN HP 10-1 EAC1 PO
[2021-03-24 08:25] VITALS: BP 139/84
== END | disposition home or self-care (01) ==
LOC: OR 06:28
PROVIDERS: ATTEND Physical Medicine & Rehabilitation Pain Medicine
DX: M46.1 Sacroiliitis, not elsewhere classified (principal); G57.02 Lesion of sciatic nerve, left lower limb; M79.18 Myalgia, other site; Z98.1 Arthrodesis status; M47.816 Spondylosis without myelopathy or radiculopathy, lumbar region; M47.812 Spondylosis without myelopathy or radiculopathy, cervical region; M48.061 Spinal stenosis, lumbar region without neurogenic claudication; M96.1 Postlaminectomy syndrome, not elsewhere classified; G47.33 Obstructive sleep apnea (adult) (pediatric); I10 Essential (primary) hypertension; R00.1 Bradycardia, unspecified; I25.10 Atherosclerotic heart disease of native coronary artery without angina pectoris; Z88.6 Allergy status to analgesic agent; Z98.61 Coronary angioplasty status; Z01.810 Encounter for preprocedural cardiovascular examination; Z01.812 Encounter for preprocedural laboratory examination; Z20.822 Contact with and (suspected) exposure to COVID-19; Z79.02 Long term (current) use of antithrombotics/antiplatelets; Z79.899 Other long term (current) drug therapy; Z86.73 Personal history of transient ischemic attack (TIA), and cerebral infarction without residual deficits; Z96.651 Presence of right artificial knee joint
CPT/HCPCS: 36415; 85025; 93005; G0260; J2001 ×2; J2250; J2704; J3010; J3301; Q9967; 77003

== ENCOUNTER → 2021-08-25 | Day surgery (SDC) | payer MEDICARE ==
[2021-08-24 10:14] LABS: BASOPHILS % 0.3 % (0.0-1.0); EOSINOPHILS # (AUTO) 0.1 (0.0-0.4); EOSINOPHILS % 1.4 % (0.0-6.0); HEMATOCRIT 44.6 % (38.2-49.6); HEMOGLOBIN 14.4 g/dL (14.0-18.0); LYMPHOCYTES # (AUTO) 2.5 (1.0-3.2); LYMPHOCYTES % 32.7 % (18.0-39.1); MEAN CORPUSCULAR HEMOGLOBIN 30.9 pg (28-32); MEAN CORPUSCULAR HGB CONC 32.3 g/dL (31-35); MEAN CORPUSCULAR VOLUME 95.7 fL (81-99); MONOCYTES # (AUTO) 0.5 (0.2-0.8); MONOCYTES % 6.7 % (4.4-11.3); NEUTROPHILS # (AUTO) 4.5 (2.1-6.9); NEUTROPHILS % 58.6 % (38.7-80.0); PLATELET COUNT 187 x10e3/uL (140-360); RED BLOOD COUNT 4.66 x10e6/uL (4.3-5.7); RED CELL DISTRIBUTION WIDTH 12.8 % (11.7-14.4)
[~2021-08-25] MED LIST changes: -FENTANYL CITRATE/PF 100MCG/2 ML INJ ONE; -TRIAMCINOLONE ACET 40 MG/ML VIAL ONE; +VITAMIN B-121000 MCG SL; +VITAMIN D325 MCG PO
[2021-08-25 07:00] VITALS: BP 123/84
== END | disposition home or self-care (01) ==
LOC: OR 06:50
PROVIDERS: ATTEND Physical Medicine & Rehabilitation Pain Medicine
DX: M47.896 Other spondylosis, lumbar region (principal); M54.16 Radiculopathy, lumbar region; M06.9 Rheumatoid arthritis, unspecified; M19.90 Unspecified osteoarthritis, unspecified site; G47.33 Obstructive sleep apnea (adult) (pediatric); E78.5 Hyperlipidemia, unspecified; I25.10 Atherosclerotic heart disease of native coronary artery without angina pectoris; K21.9 Gastro-esophageal reflux disease without esophagitis; G20 Parkinson's disease; F41.9 Anxiety disorder, unspecified; Z88.6 Allergy status to analgesic agent; Z01.812 Encounter for preprocedural laboratory examination; Z20.822 Contact with and (suspected) exposure to COVID-19; Z79.02 Long term (current) use of antithrombotics/antiplatelets; Z79.899 Other long term (current) drug therapy; Z95.5 Presence of coronary angioplasty implant and graft; Z86.73 Personal history of transient ischemic attack (TIA), and cerebral infarction without residual deficits
CPT/HCPCS: 0223U; 36415; 64493; 64494; 64495; 77003; 85025; 93005; J2001 ×2; J2250; J2704; Q9967

== ENCOUNTER → 2022-05-04 | Day surgery (SDC) | payer MEDICARE ==
[2022-05-02 14:20] LABS: BASOPHILS % 0.4 % (0.0-1.0); EOSINOPHILS # (AUTO) 0.3 (0.0-0.4); EOSINOPHILS % 2.9 % (0.0-6.0); HEMATOCRIT 39.8 % (38.2-49.6); HEMOGLOBIN 12.7 g/dL (14.0-18.0); LYMPHOCYTES # (AUTO) 3.2 (1.0-3.2); LYMPHOCYTES % 33.6 % (18.0-39.1); MEAN CORPUSCULAR HEMOGLOBIN 29.8 pg (28-32); MEAN CORPUSCULAR HGB CONC 31.9 g/dL (31-35); MEAN CORPUSCULAR VOLUME 93.4 fL (81-99); MONOCYTES # (AUTO) 0.7 (0.2-0.8); MONOCYTES % 7.5 % (4.4-11.3); NEUTROPHILS # (AUTO) 5.3 (2.1-6.9); NEUTROPHILS % 54.8 % (38.7-80.0); PLATELET COUNT 194 x10e3/uL (140-360); RED BLOOD COUNT 4.26 x10e6/uL (4.3-5.7); RED CELL DISTRIBUTION WIDTH 12.5 % (11.7-14.4)
[~2022-05-04] MED LIST changes: -BUPIVACAINE 0.25% 30ML SDV ONE; +ETOMIDATE 2 MG/ML 10 ML INJ IV ONE; +FENTANYL CITRATE/PF 100MCG/2 ML INJ ONE; +LACTATED RINGER'S 1,000 ML ONE; -MIDAZOLAM HCL 2 MG/2 ML VIAL ONE; +PROTONIX20 MG PO; +ROCURONIUM BROMIDE 10 MG/ML 5ML VIAL IV ONE; +TRIAMCINOLONE ACET 40 MG/ML VIAL ONE
[2022-05-04 07:05] VITALS: BP 149/81
== END | disposition home or self-care (01) ==
LOC: OR 06:00
PROVIDERS: ATTEND Physical Medicine & Rehabilitation Pain Medicine
DX: M46.1 Sacroiliitis, not elsewhere classified (principal); M96.1 Postlaminectomy syndrome, not elsewhere classified; M47.896 Other spondylosis, lumbar region; M54.16 Radiculopathy, lumbar region; M48.061 Spinal stenosis, lumbar region without neurogenic claudication; G89.4 Chronic pain syndrome; Z98.1 Arthrodesis status; G70.80 Lambert-Eaton syndrome, unspecified; G20 Parkinson's disease; I25.10 Atherosclerotic heart disease of native coronary artery without angina pectoris; Z88.6 Allergy status to analgesic agent; Z01.810 Encounter for preprocedural cardiovascular examination; Z01.812 Encounter for preprocedural laboratory examination; Z79.02 Long term (current) use of antithrombotics/antiplatelets; Z79.899 Other long term (current) drug therapy
CPT/HCPCS: 36415; 85025; 93005; G0260; J2001 ×2; J2704; J3010; J3301; J7121; Q9967; 77003